=== PATIENT | male | born 1955 | race African-American/Black ===

== ENCOUNTER 2019-02-28 11:00 | Inpatient (IN) | payer MEDICAID ==
[2019-02-28 11:57] VITALS: BP 158/91
[2019-03-01] MEDS: Maalox 30 mL Cup PO SCH ×5 (00:58→17:01)
[2019-03-01] MEDS: Promethazine DM 6.25/15mg-5mL 5 ML SYR PO PRN ×2 (01:20→18:00)
[2019-03-01] MEDS: Levothyroxine 0.05 Mg Tab PO SCH (06:37)
[2019-03-01] MEDS: NIFEdipine 30 mg ER Tab PO SCH (09:37)
--- NOTE | 2019-03-01 11:31 | History and Physical ---
History of Present Illness - HPI Chief Complaint: 63 y/o patient was brought into ER for a Psych evaluation. HPI: 63 y/o patient was admitted to [facility] for a Psych evaluation due to Depression and Suicidal Ideation. Patient has also been complaining of cough and occasional wheezing. Patient has history of Schizophrenia, Bipolar disorder, Thyroid disease, Hyperlipidemia, Diabetes Mellitus and PTSD. Patient had an ER assessment done and a complete workup was done. Patient was diagnosed with Suicidal ideation, Depression, ETOH Abuse, Illicit Drug Abuse, history of Schizophrenia, history of Bipolar disorder, history of Thyroid disease, history of Hyperlipidemia, history of Diabetes Mellitus, Chronic Bronchitis and PTSD. Patient will have a Psych evaluation. I will follow, treat and monitor patient. Patient will continue current treatment plan as ordered. 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 Pertinent Hx GI: Report: No Pertinent Hx Psych: Report: Depression, Schizophrenia, Other (Bipolar disorder and PTSD.) Musculoskeletal: Report: Weakness, Other (Hx of Arthritis.) Rheumatologic: Report: No pertinent Hx Infectious Disease: Report: No Pertinent Hx Renal/: Report: No Pertinent Hx Endocrine: Report: Diabetes Dermatology: Report: No Pertinent Hx - Past Surgical History Past Surgical History: No pertinent Hx Family Medical History - Family Member Maternal History Unknown: Yes Social History Smoke: No Alcohol: Heavy Drugs: Other Lives: Snf Domestic Violence: Negative Health Maintenance Health Maintenance: Other (please see chart.) - Medications Other Medications: Please see medication reconciliation sheet. - Allergies Allergies/Adverse Reactions: Allergies Allergy/AdvReac Type Severity Reaction Status Date / Time PENICILLIN Allergy Uncoded 02/28/19 12:00 Review of Systems - Review of Systems Review of Systems: Patient was admitted due to Severe depression, suicidal thoughts and persistent cough, needs close monitoring. Constitutional: Report: No Significant Eyes: Report: No Significant ENT: Report: No Significant Respiratory: Report: Cough, Wheezing Cardiovascular: Report: No Significant Gastrointestinal: Report: No Significant Genitourinary: Report: No Significant Musculoskeletal: Report: Other (Hx of Arthritis.) Skin: Report: No Significant Neurological: Report: Weakness, Confusion Physical Exam - Physical Exam HEENT: Report: Ears Nose Throat within normal limits Neck: Report: Within normal limits Cardiovascular Systems: Report: +s1/s2 noted, Regular, Rate and Rhythm Respiratory: Report: Wheezing, Rhonchi Abdomen: Report: Non-tender to palpation Back: Report: Inspection of back is within normal limits. Extremities: Report: Non-tender to palpation. Skin: Report: Color of skin is within normal limits Neuro/Psych: Report: Disoriented to name time or place - Lab Results All Lab Results last 24 hours: Please see labs. - Assessment Assessment: Suicidal ideation. Depression. ETOH Abuse. Illicit Drug Abuse. Schizophrenia. Bipolar disorder. Thyroid disease. Hyperlipidemia. Diabetes Mellitus. Chronic Bronchitis. PTSD. - Plan Plan: Monitor vitals and labs. Continue present meds as directed. Monitor diet and nutritional support. Psych management as per Psych. Pain management. Supportive care. Continue current treatment plan as ordered.
[2019-03-02] MEDS: Maalox 30 mL Cup PO SCH ×4 (00:05→17:03)
[2019-03-02] MEDS: Levothyroxine 0.05 Mg Tab PO SCH (06:56)
[2019-03-02] MEDS: NIFEdipine 30 mg ER Tab PO SCH (08:52)
--- NOTE | 2019-03-02 11:57 | Internal Medicine Prog Note ---
Internal Medicine Subjective - Subjective Patient seen and examined:: with staff Patient is:: awake, verbal, agitated Per staff patient has:: no adverse event, no episodes of fall Internal Medicine Objective - Physical Exam Vitals and I&O: Vital Signs Temp 98.2 F 03/02/19 06:15 Pulse 82 03/02/19 08:54 Resp 20 03/02/19 06:15 BP 155/80 03/02/19 08:54 Pulse Ox 99 03/02/19 06:15 Intake & Output 03/01/19 03/02/19 03/02/19 18:59 06:59 18:59 Intake Total 1200 240 Balance 1200 240 Intake: Oral 1200 240 Other: # Voids 4 2 # Bowel Movements 1 Stool Characteristics Formed Active Medications: Current Medications Al Hydrox/Mg Hydrox/Simethicone (Maalox) 20 ml PO Q6HR [facility] Stop: 04/29/19 17:59 Last Admin: 03/02/19 06:56 Dose: Not Given Azithromycin (Zithromax) 250 mg PO DAILY [facility] Stop: 03/06/19 08:59 Last Admin: 03/02/19 08:53 Dose: 250 mg Baclofen (Lioresal) 10 mg PO TID [facility] Stop: 04/29/19 20:59 Last Admin: 03/02/19 08:53 Dose: 10 mg Famotidine (Pepcid) 20 mg PO BID [facility] Stop: 04/30/19 08:59 Last Admin: 03/02/19 08:54 Dose: 20 mg Gabapentin (Neurontin) 600 mg PO BID [facility] Stop: 04/30/19 08:59 Last Admin: 03/02/19 08:52 Dose: 600 mg Levothyroxine Sodium (Synthroid) 0.05 mg PO QDAC [facility] Stop: 04/30/19 07:29 Last Admin: 03/02/19 06:56 Dose: Not Given Lisinopril (Zestril) 5 mg PO DAILY [facility] Stop: 04/30/19 08:59 Last Admin: 03/02/19 08:54 Dose: 5 mg Nifedipine (Procardia Xl) 30 mg PO DAILY [facility] Stop: 04/30/19 08:59 Last Admin: 03/02/19 08:52 Dose: 30 mg Promethazine HCl/Dextromethorphan (Phenergan Dm 6.25/15mg-5 Ml) 5 ml PO Q6HR PRN PRN Reason: Cough Stop: 04/29/19 18:29 Last Admin: 03/01/19 18:00 Dose: 5 ml Tamsulosin HCl (Flomax) 0.4 mg PO DAILY [facility] Stop: 04/30/19 08:59 Last Admin: 03/02/19 08:54 Dose: 0.4 mg Zolpidem Tartrate (Ambien) 5 mg PO HS PRN PRN Reason: Insomnia Stop: 04/30/19 01:41 Last Admin: 03/01/19 21:50 Dose: 5 mg General: alert, NAD HEENT: NC/AT, PERRLA Neck: Supple, No JVD Lungs: other (no acute respiratory distress) Cardiovascular: RRR Abdomen: soft, non-distended Extremities: clear Internal Medicine Assmt/Plan - Assessment Assessment: Chart Reviewed Suicidal ideations ETOH abuse Illicit drug abuse Schizophrenia Bipolar disorder PTSD Depression HTN Hyperlipidemia DM2 Thyroid disorder Chronic Bronchitis - Plan Plan: Continue current treatment plan. Monitor Labs. Continue current medications Continue to monitor VS Monitor Diet/Nutritional support. Psych management per Psychiatry. Pain Management. PT/OT prnSafety precaution, Fall precaution, frequent nursing round. Supportive care. Continue collaborating with consulting specialists, case management and nursing team
[2019-03-02] MEDS: Promethazine DM 6.25/15mg-5mL 5 ML SYR PO PRN (18:53)
--- NOTE | 2019-03-02 20:25 | Internal Medicine Prog Note ---
Internal Medicine Subjective - Subjective Service Date: 03/02/19 Patient seen and examined:: with staff Patient is:: awake, verbal, agitated Patient Complaints of:: other (Very Depressed.) Per staff patient has:: no adverse event, no episodes of fall Internal Medicine Objective - Physical Exam Vitals and I&O: Vital Signs Temp 98.1 F 03/02/19 18:01 Pulse 63 03/02/19 18:01 Resp 19 03/02/19 18:01 BP 126/69 03/02/19 18:01 Pulse Ox 100 03/02/19 18:01 Intake & Output 03/02/19 03/02/19 03/03/19 06:59 18:59 06:59 Intake Total 240 1200 Balance 240 1200 Intake: Oral 240 1200 Other: # Voids 2 4 # Bowel Movements 1 Active Medications: Current Medications Al Hydrox/Mg Hydrox/Simethicone (Maalox) 20 ml PO Q6HR [facility] Stop: 04/29/19 17:59 Last Admin: 03/02/19 17:03 Dose: 20 ml Azithromycin (Zithromax) 250 mg PO DAILY [facility] Stop: 03/06/19 08:59 Last Admin: 03/02/19 08:53 Dose: 250 mg Baclofen (Lioresal) 10 mg PO TID [facility] Stop: 04/29/19 20:59 Last Admin: 03/02/19 14:00 Dose: 10 mg Famotidine (Pepcid) 20 mg PO BID [facility] Stop: 04/30/19 08:59 Last Admin: 03/02/19 16:55 Dose: 20 mg Gabapentin (Neurontin) 600 mg PO BID [facility] Stop: 04/30/19 08:59 Last Admin: 03/02/19 16:55 Dose: 600 mg Levothyroxine Sodium (Synthroid) 0.05 mg PO QDAC [facility] Stop: 04/30/19 07:29 Last Admin: 03/02/19 06:56 Dose: Not Given Lisinopril (Zestril) 5 mg PO DAILY [facility] Stop: 04/30/19 08:59 Last Admin: 03/02/19 08:54 Dose: 5 mg Lorazepam (Ativan) 0.5 mg PO Q6HR PRN; Protocol PRN Reason: Agitation Stop: 05/01/19 14:14 Nifedipine (Procardia Xl) 30 mg PO DAILY [facility] Stop: 04/30/19 08:59 Last Admin: 03/02/19 08:52 Dose: 30 mg Promethazine HCl/Dextromethorphan (Phenergan Dm 6.25/15mg-5 Ml) 5 ml PO Q6HR PRN PRN Reason: Cough Stop: 04/29/19 18:29 Last Admin: 03/02/19 18:53 Dose: 5 ml Tamsulosin HCl (Flomax) 0.4 mg PO DAILY [facility] Stop: 04/30/19 08:59 Last Admin: 03/02/19 08:54 Dose: 0.4 mg Zolpidem Tartrate (Ambien) 5 mg PO HS PRN PRN Reason: Insomnia Stop: 04/30/19 01:41 Last Admin: 03/01/19 21:50 Dose: 5 mg Physical Exam: 63 y/o male patient continues to be very depressed with suicidal ideation, needs close monitoring. General: alert, NAD HEENT: NC/AT, PERRLA Neck: Supple, No JVD Lungs: other (no acute respiratory distress) Cardiovascular: RRR Abdomen: soft, non-distended Extremities: clear Neurological: no change, alert Internal Medicine Assmt/Plan - Assessment Assessment: Suicidal ideation. Depression. ETOH Abuse. Illicit Drug Abuse. Schizophrenia. Bipolar disorder. Thyroid disease. Hyperlipidemia. Diabetes Mellitus. Chronic Bronchitis. PTSD. - Plan Plan: Continue present meds as directed. Monitor vitals and labs. Psych management per Psych. Monitor diet and nutritional support. Pain Management. PT/OT prn. Safety precaution, Fall precaution, frequent nursing round. Supportive care. Continue collaborating with consulting specialists, case management and nursing team Continue present care management. Nutritional Asmnt/Malnutr-PDOC - Dietary Evaluation Malnutrition Findings (Please click <Entered> for more info): see labs.
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
--- NOTE | 2019-03-03 00:10 | Psych Progress Note ---
Psych Progress Note - Intro Date of Progress Note: 03/02/19 - Assessment Assessment: Patietn interviewed, case discussed with staff, chart and records were reviewed. Patient's EKG was reviewed from previous hospital, QTc WNL even though patient overdosed on anti-psychotic meds. Remains depressed, hearing voices, poor self care. Irritable, uncooperative overall and has no plan for care. - Vitals, I&O Vitals: Vital Signs - 24 hr 03/02/19 03/02/19 03/02/19 06:15 08:52 08:54 Temp 98.2 F HR 82 82 82 RR 20 BP 155/80 155/80 155/80 O2 Sat % 99 03/02/19 03/02/19 18:01 20:29 Temp 98.1 F 97.9 F HR 63 81 RR 19 20 BP 126/69 119/70 O2 Sat % 100 98 - ROS Psychological ROS: Report: Anxiety, Behavioral Disorder, Concentration difficulty, Depression, Hallucinations, Hostility, Irritability, Mood swings, Sleep Disturbances, Suicidal Ideation - Objective Psych Objective: limited cooperative, poor hygiene, speech is selectively mute, irritable labile , loose thinking, +SI, no HI, +RIS, +paranoia, A&O x 3, insight is poor - Plan Plan: originally held anti-psychotic until EKG was available to measure QTc given overdose on antipsychotic. QTc found to be WNL. Will avoid Seroquel due to overdose attempt and will start Abilify to further target symptoms. - Review of Relevant Data Review of Relevant Data: I have reviewed the following items and time ravinder (where applicable) has been applied. - Medications Current Medications: Current Medications Al Hydrox/Mg Hydrox/Simethicone (Maalox) 20 ml PO Q6HR [facility] Stop: 04/29/19 17:59 Last Admin: 03/02/19 17:03 Dose: 20 ml Azithromycin (Zithromax) 250 mg PO DAILY [facility] Stop: 03/06/19 08:59 Last Admin: 03/02/19 08:53 Dose: 250 mg Baclofen (Lioresal) 10 mg PO TID [facility] Stop: 04/29/19 20:59 Last Admin: 03/02/19 20:42 Dose: 10 mg Famotidine (Pepcid) 20 mg PO BID [facility] Stop: 04/30/19 08:59 Last Admin: 03/02/19 16:55 Dose: 20 mg Gabapentin (Neurontin) 600 mg PO BID [facility] Stop: 04/30/19 08:59 Last Admin: 03/02/19 16:55 Dose: 600 mg Levothyroxine Sodium (Synthroid) 0.05 mg PO QDAC [facility] Stop: 04/30/19 07:29 Last Admin: 03/02/19 06:56 Dose: Not Given Lisinopril (Zestril) 5 mg PO DAILY [facility] Stop: 04/30/19 08:59 Last Admin: 03/02/19 08:54 Dose: 5 mg Lorazepam (Ativan) 0.5 mg PO Q6HR PRN; Protocol PRN Reason: Agitation Stop: 05/01/19 14:14 Nifedipine (Procardia Xl) 30 mg PO DAILY [facility] Stop: 04/30/19 08:59 Last Admin: 03/02/19 08:52 Dose: 30 mg Promethazine HCl/Dextromethorphan (Phenergan Dm 6.25/15mg-5 Ml) 5 ml PO Q6HR PRN PRN Reason: Cough Stop: 04/29/19 18:29 Last Admin: 03/02/19 18:53 Dose: 5 ml Tamsulosin HCl (Flomax) 0.4 mg PO DAILY [facility] Stop: 04/30/19 08:59 Last Admin: 03/02/19 08:54 Dose: 0.4 mg Zolpidem Tartrate (Ambien) 5 mg PO HS PRN PRN Reason: Insomnia Stop: 04/30/19 01:41 Last Admin: 03/02/19 20:42 Dose: 5 mg
[2019-03-03] MEDS: Maalox 30 mL Cup PO SCH ×4 (06:52→18:00)
[2019-03-03] MEDS: Levothyroxine 0.05 Mg Tab PO SCH (06:52)
[2019-03-03] MEDS: NIFEdipine 30 mg ER Tab PO SCH (08:33)
--- NOTE | 2019-03-03 15:26 | Internal Medicine Prog Note ---
Internal Medicine Subjective - Subjective Service Date: 03/03/19 Patient seen and examined:: with staff, chart reviewed Patient is:: awake, verbal, agitated Patient Complaints of:: other (Very Depressed.) Per staff patient has:: no adverse event, no episodes of fall Internal Medicine Objective - Physical Exam Vitals and I&O: Vital Signs Temp 97.9 F 03/03/19 06:38 Pulse 76 03/03/19 08:34 Resp 20 03/03/19 06:38 BP 139/78 03/03/19 08:34 Pulse Ox 97 03/03/19 06:38 Intake & Output 03/02/19 03/03/19 03/03/19 18:59 06:59 18:59 Intake Total 1200 480 Balance 1200 480 Intake: Oral 1200 480 Other: # Voids 4 1 # Bowel Movements 1 Active Medications: Current Medications Al Hydrox/Mg Hydrox/Simethicone (Maalox) 20 ml PO Q6HR [facility] Stop: 04/29/19 17:59 Last Admin: 03/03/19 11:13 Dose: 20 ml Aripiprazole (Abilify) 5 mg PO DAILY [facility]; Protocol Stop: 05/02/19 08:59 Azithromycin (Zithromax) 250 mg PO DAILY [facility] Stop: 03/06/19 08:59 Last Admin: 03/03/19 08:33 Dose: 250 mg Baclofen (Lioresal) 10 mg PO TID [facility] Stop: 04/29/19 20:59 Last Admin: 03/03/19 13:15 Dose: 10 mg Famotidine (Pepcid) 20 mg PO BID [facility] Stop: 04/30/19 08:59 Last Admin: 03/03/19 08:35 Dose: 20 mg Gabapentin (Neurontin) 600 mg PO BID [facility] Stop: 04/30/19 08:59 Last Admin: 03/03/19 08:35 Dose: 600 mg Levothyroxine Sodium (Synthroid) 0.05 mg PO QDAC [facility] Stop: 04/30/19 07:29 Last Admin: 03/03/19 06:52 Dose: 0.05 mg Lisinopril (Zestril) 5 mg PO DAILY [facility] Stop: 04/30/19 08:59 Last Admin: 03/03/19 08:34 Dose: 5 mg Lorazepam (Ativan) 0.5 mg PO Q6HR PRN; Protocol PRN Reason: Agitation Stop: 05/01/19 14:14 Nifedipine (Procardia Xl) 30 mg PO DAILY [facility] Stop: 04/30/19 08:59 Last Admin: 03/03/19 08:33 Dose: 30 mg Promethazine HCl/Dextromethorphan (Phenergan Dm 6.25/15mg-5 Ml) 5 ml PO Q6HR PRN PRN Reason: Cough Stop: 04/29/19 18:29 Last Admin: 03/02/19 18:53 Dose: 5 ml Tamsulosin HCl (Flomax) 0.4 mg PO DAILY [facility] Stop: 04/30/19 08:59 Last Admin: 03/03/19 08:35 Dose: 0.4 mg Zolpidem Tartrate (Ambien) 5 mg PO HS PRN PRN Reason: Insomnia Stop: 04/30/19 01:41 Last Admin: 03/02/19 20:42 Dose: 5 mg Physical Exam: 63 y/o male patient continues to need close monitoring, still depressed, uncooperative poor hygiene, poor insight. General: alert, NAD HEENT: NC/AT, PERRLA Neck: Supple, No JVD Lungs: other (no acute respiratory distress) Cardiovascular: RRR Abdomen: soft, non-distended Extremities: clear Neurological: no change, alert Internal Medicine Assmt/Plan - Assessment Assessment: Suicidal ideation. Depression. ETOH Abuse. Illicit Drug Abuse. Schizophrenia. Bipolar disorder. Thyroid disease. Hyperlipidemia. Diabetes Mellitus. Chronic Bronchitis. PTSD. - Plan Plan: Monitor vitals and labs. Continue present meds as directed. Monitor diet and nutritional support. Psych management as per Psych. Pain management. Supportive care. Continue current treatment plan as ordered. Nutritional Asmnt/Malnutr-PDOC - Dietary Evaluation Malnutrition Findings (Please click <Entered> for more info): see labs.
[2019-03-03] MEDS: Promethazine DM 6.25/15mg-5mL 5 ML SYR PO PRN (20:39)
--- NOTE | 2019-03-03 20:56 | Progress Notes ---
DATE: 03/03/2019 SUBJECTIVE: The patient is currently in the hospital, overdosed on Seroquel. States that he was not suicidal. States that he was high on meth and crack cocaine, was trying to calm down and ended up overtaking it. The patient is calm on exam and cooperative, friendly, has been to hospitals before. Denies any suicide attempts. The patient relaxed on exam. Currently on a small dose of Abilify. States that he usually takes Depakote as a mood stabilizer, wants to be back on Depakote. Staff noting he has been generally calm, friendly and cooperative. ASSESSMENT: The patient calmer, more cooperative, seems to be showing signs of improvements, concerns about the reasons that led him to his admission. Big overdose on Seroquel, but notes that he was using crack cocaine and meth, trying to calm down. PLAN: We will err on the side of caution, continue inpatient monitoring. Restart Depakote. The patient knows this is his typical home medication. JOB# [id number]
[2019-03-04] MEDS: Maalox 30 mL Cup PO SCH ×3 (00:58→12:00)
[2019-03-04] MEDS: Promethazine DM 6.25/15mg-5mL 5 ML SYR PO PRN ×2 (02:21→20:13)
[2019-03-04] MEDS: Levothyroxine 0.05 Mg Tab PO SCH (06:33)
[2019-03-04] MEDS: NIFEdipine 30 mg ER Tab PO SCH (08:49)
--- NOTE | 2019-03-04 18:31 | Internal Medicine Prog Note ---
Internal Medicine Subjective - Subjective Service Date: 03/04/19 Patient is:: awake, verbal, agitated Patient Complaints of:: other (Very Depressed.) Per staff patient has:: no adverse event, no episodes of fall Internal Medicine Objective - Physical Exam Vitals and I&O: Vital Signs Temp 98.5 F 03/04/19 14:00 Pulse 76 03/04/19 14:00 Resp 20 03/04/19 14:00 BP 130/76 03/04/19 14:00 Pulse Ox 98 03/04/19 14:00 Intake & Output 03/03/19 03/04/19 03/04/19 18:59 06:59 18:59 Intake Total 1400 Balance 1400 Intake: Oral 1400 Other: # Voids 4 # Bowel Movements 1 Active Medications: Current Medications Al Hydrox/Mg Hydrox/Simethicone (Maalox) 20 ml PO Q6HR [facility] Stop: 04/29/19 17:59 Last Admin: 03/04/19 12:00 Dose: Not Given Aripiprazole (Abilify) 5 mg PO DAILY [facility]; Protocol Stop: 05/02/19 08:59 Azithromycin (Zithromax) 250 mg PO DAILY [facility] Stop: 03/06/19 08:59 Last Admin: 03/04/19 08:47 Dose: 250 mg Baclofen (Lioresal) 10 mg PO TID [facility] Stop: 04/29/19 20:59 Last Admin: 03/04/19 13:30 Dose: 10 mg Divalproex Sodium (Depakote Dr) 250 mg PO BID [facility]; Protocol Stop: 05/02/19 16:59 Last Admin: 03/03/19 16:51 Dose: Not Given Famotidine (Pepcid) 20 mg PO BID [facility] Stop: 04/30/19 08:59 Last Admin: 03/04/19 16:48 Dose: 20 mg Gabapentin (Neurontin) 600 mg PO BID [facility] Stop: 04/30/19 08:59 Last Admin: 03/04/19 16:48 Dose: 600 mg Levothyroxine Sodium (Synthroid) 0.05 mg PO QDAC [facility] Stop: 04/30/19 07:29 Last Admin: 03/04/19 06:33 Dose: 0.05 mg Lisinopril (Zestril) 5 mg PO DAILY [facility] Stop: 01/22/20 08:59 Last Admin: 03/04/19 08:48 Dose: 5 mg Lorazepam (Ativan) 0.5 mg PO Q6HR PRN; Protocol PRN Reason: Agitation Stop: 05/01/19 14:14 Nifedipine (Procardia Xl) 30 mg PO DAILY [facility] Stop: 04/30/19 08:59 Last Admin: 03/04/19 08:49 Dose: 30 mg Promethazine HCl/Dextromethorphan (Phenergan Dm 6.25/15mg-5 Ml) 5 ml PO Q6HR PRN PRN Reason: Cough Stop: 04/29/19 18:29 Last Admin: 03/04/19 02:21 Dose: 5 ml Tamsulosin HCl (Flomax) 0.4 mg PO DAILY [facility] Stop: 04/30/19 08:59 Last Admin: 03/04/19 08:50 Dose: 0.4 mg Zolpidem Tartrate (Ambien) 5 mg PO HS PRN PRN Reason: Insomnia Stop: 04/30/19 01:41 Last Admin: 03/03/19 20:39 Dose: 5 mg General: alert, NAD HEENT: NC/AT, PERRLA Neck: Supple, No JVD Lungs: other (no acute respiratory distress) Cardiovascular: RRR Abdomen: soft, non-distended Extremities: clear Neurological: no change, alert Internal Medicine Assmt/Plan - Assessment Assessment: Suicidal ideations ETOH abuse Illicit drug abuse Schizophrenia Bipolar disorder PTSD Depression HTN Hyperlipidemia DM2 Thyroid disorder Chronic Bronchitis - Plan Plan: Continue current treatment plan. Monitor Labs. Continue current medications Continue to monitor VS Monitor Diet/Nutritional support. Psych management per Psychiatry. Pain Management. PT/OT prnSafety precaution, Fall precaution, frequent nursing round. Supportive care. Continue collaborating with consulting specialists, case management and nursing team
--- NOTE | 2019-03-04 21:06 | Progress Notes ---
DATE: 03/04/2019 PSYCHIATRIC PROGRESS NOTE SUBJECTIVE: Chart reviewed and patient interviewed. Also discussed the patient's condition with the staff and reviewed records and labs. The patient is still easily agitated and easily irritable. The patient also is still minimizing his symptoms. The patient also is talking about his drug use issues and talking about his suicidal attempts prior to his admission to the hospital. Also, talking about his meth use. The patient admits amphetamine was his drug of choice and also occasionally was using crack cocaine. ASSESSMENT: The patient is still anxious and is still in irritable mood. TREATMENT PLAN: Continue to monitor his behavior and his condition closely. Also, continue adjusting psychotropic medications and work on his severe depression and ineffective coping as well as his suicidal attempts and also his addiction. JOB# [id number]
[2019-03-05] MEDS: Maalox 30 mL Cup PO SCH ×2 (00:35→05:52)
[2019-03-05] MEDS: Promethazine DM 6.25/15mg-5mL 5 ML SYR PO PRN (02:26)
[2019-03-05] MEDS: Levothyroxine 0.05 Mg Tab PO SCH (06:30)
[2019-03-05] MEDS: NIFEdipine 30 mg ER Tab PO SCH (08:52)
[2019-03-05] MEDS ORDERED: Probiotic Screen MC PRN (10:36)
[2019-03-05] MEDS ORDERED: Lactobacillus Rhamnosus GG 15 Billion CFU CAP.SPRINK PO SCH (14:00)
--- NOTE | 2019-03-07 17:45 | Discharge Summary ---
DATE OF DISCHARGE: 03/05/2019 AGE: 63. SEX: Male. PHYSICIAN: Dr. Caicedo. FINAL DIAGNOSIS AND PRIMARY DIAGNOSIS: Depressive mood disorder, unspecified, rule out schizoaffective disorder. SECONDARY DIAGNOSIS: Polysubstance use disorder. REASON FOR HOSPITALIZATION: The patient was admitted to the hospital on a 5150 hold for danger to self. The patient was depressed and homeless and he overdosed on 17 tablets of Seroquel and admitted to the hospital. Also, was paranoid and hearing voices and had mood swings. HOSPITAL COURSE: The patient continued to be severely depressed. Also, continued to have mood swings. The patient was given Depakote in a dose of 250 mg twice a day and Abilify 5 mg every day as well as gabapentin 600 mg every day. Gradually, the patient's affect was brighter. The patient was less irritable and less agitated. He denied any thoughts of suicide or homicide. He admitted to his use of drugs and he wanted to stay clean Physical exam of the patient is basically within normal and the patient has no major medical problems while in the hospital. AFTER DISCHARGE PLANS: The patient discharged from the hospital with plans to continue his treatment as an outpatient. Also, to go to a drug rehab program. DISCHARGE MEDICATIONS: 1. Abilify 5 mg every day. 2. Depakote 250 mg twice a day. 3. Gabapentin 600 mg twice a day. EXPECTED OUTCOME AFTER DISCHARGE: Fair if the patient stopped using drugs and goes to rehabilitation and follow up with discharge plans. JOB# [id number]
== END 2019-03-05 12:00 | disposition home or self-care (01) | DRG 881 ==
LOC: GERO 11:00
PROVIDERS: ADMIT Psychiatry & Neurology Psychiatry; ATTEND Psychiatry & Neurology Psychiatry
DX: F32.9 Major depressive disorder, single episode, unspecified (principal); R45.851 Suicidal ideations; F25.9 Schizoaffective disorder, unspecified; F10.10 Alcohol abuse, uncomplicated; Y90.9 Presence of alcohol in blood, level not specified; E07.9 Disorder of thyroid, unspecified; E78.5 Hyperlipidemia, unspecified; E11.9 Type 2 diabetes mellitus without complications; J42 Unspecified chronic bronchitis; F43.10 Post-traumatic stress disorder, unspecified; F19.90 Other psychoactive substance use, unspecified, uncomplicated; F17.210 Nicotine dependence, cigarettes, uncomplicated; Z88.0 Allergy status to penicillin
CPT/HCPCS: 83036-90; 90899; G0410; Z7610